=== PATIENT | female | born 1930 | race Caucasian/White ===

== ENCOUNTER → 2016-12-19 | Outpatient (CLI) | payer BC ==
[2016-02-08 10:49] VITALS: BP 126/46
[~2016-12-19] MED LIST: ANAS1TAB PO; APIX5TAB PO; ASCO1500 PO; ASPI-39 PO; BENZ1LOZ48 MM; CALC-98 PO; CARV6.252 PO; CHOL10002 PO; CINN500C2 PO; CIPR250T30 PO; CRAN400T5 PO; CYAN25002 SL; FOLI1TAB35 PO; FURO40TA4 PO; GLUC100018 PO; GLUC1500 PO; LOSA25TA4 PO; Metoprolol Tartrate PO; OMEG1CAP38 PO; OMEP20TA63 PO; OXYC-323 PO; POTA10TA12 PO; PROAIR HFA8.5 GM IH; SIMV20TA3 PO; TRIA1CAP3 PO
--- NOTE | 2016-12-19 14:52 | CARD ---
APPROVED REPORT EXAM: Two-dimensional and M-mode echocardiogram with Doppler and color Doppler. Other Information Quality : GoodHR: 74bpm Rhythm : NSR INDICATION Cardiomyopathy 2D DIMENSIONS RVDd2.9 (2.9-3.5cm)Left Atrium(2D)3.8 (1.6-4.0cm) IVSd1.2 (0.7-1.1cm)Aortic Root(2D)2.2 (2.0-3.7cm) LVDd5.3 (3.9-5.9cm)LVOT Diameter2.2 (1.8-2.4cm) PWd1.2 (0.7-1.1cm)LVDs4.4 (2.5-4.0cm) FS (%) 17.9 %SV50.8 ml LVEF(%)36.9 (>50%) Aortic Valve AoV Peak Seng.129.3cm/sAoV VTI31.2cm AO Peak GR.6.7mmHgLVOT Peak Seng.96.6cm/s AO Mean GR.4mmHgAVA (VMAX)2.74cm2 Mitral Valve MV E Wlofymoj05.8cm/sMV E Peak Gr.5mmHg MV DECEL [id number] A Iqunowzd682.1cm/s MV E Mean Gr.2mmHgE/A Ratio0.8 MV A [id number] Pulmonary Valve PV Peak Jicrmyrx06.0cm/s Tricuspid Valve TR P. Fhetqcxt650mm/sTR Peak Gr.23mmHg Pulmonary Vein S1 Cxrgyisp27.3cm/sD2 Khsblbzd33.6cm/s PVa [id number] LEFT VENTRICLE The left ventricle is normal size. There is mild concentric left ventricular hypertrophy. Left ventri elma systolic function is mildly impaired. The Ejection Fraction is 40-45%. There is mild global hypok inesis of the left ventricle. Transmitral Doppler flow pattern is Grade I-abnormal relaxation pattern . No left ventricle thrombus noted on this study. RIGHT VENTRICLE The right ventricle is normal size. There is normal right ventricular wall thickness. The right ventr icular systolic function is normal. ATRIA The left atrium is moderately dilated. The right atrium size is normal. The interatrial septum is int act with no evidence for an atrial septal defect or patent foramen ovale as noted on 2-D or Doppler i maging. AORTIC VALVE The aortic valve is mildly sclerotic. The aortic valve is trileaflet. Doppler and Color Flow revealed no significant aortic regurgitation. There is no significant aortic valvular stenosis. MITRAL VALVE Mitral annular calcification is mild. The mitral valve leaflets are thickened. There is no evidence o f mitral valve prolapse. There is no mitral valve stenosis. Doppler and Color Flow revealed mild to m oderate mitral regurgitation. TRICUSPID VALVE Doppler and Color Flow revealed trace tricuspid regurgitation. The pulmonary artery systolic pressure is estimated at 26 mmHg. There is no pulmonary hypertension. PULMONIC VALVE The pulmonic valve is not well visualized but appears to open well. Doppler and Color Flow revealed n o pulmonic valvular regurgitation. There is no pulmonic valvular stenosis by spectral Doppler. GREAT VESSELS The aortic root is normal in size. The ascending aorta is normal in size. The pulmonary artery is nor mal. The IVC is normal in size and collapses >50% with inspiration. PERICARDIAL EFFUSION There is no evidence of significant pericardial effusion. Critical Notification Critical Value: No <Conclusion> Left ventricle systolic function is mildly impaired. The Ejection Fraction is 40-45%. Transmitral Doppler flow pattern is Grade I-abnormal relaxation pattern. Mild to moderate mitral regurgitation. Trace tricuspid regurgitation. The pulmonary artery systolic pressure is estimated at 26 mmHg. There is no evidence of significant pericardial effusion.
== END | disposition home or self-care (01) ==
LOC: ECHO 09:52
PROVIDERS: ATTEND Internal Medicine Cardiovascular Disease
DX: I08.1 Rheumatic disorders of both mitral and tricuspid valves (principal)
CPT/HCPCS: 93306

== ENCOUNTER → 2017-12-13 | Outpatient (CLI) | payer BC | END | disposition home or self-care (01) | LOC: ECHO 08:55 | DX: I42.8 Other cardiomyopathies (principal); I10 Essential (primary) hypertension; I34.0 Nonrheumatic mitral (valve) insufficiency; I51.7 Cardiomegaly | CPT/HCPCS: 93306 ==

== ENCOUNTER → 2018-11-14 | Outpatient (CLI) | payer BC ==
[2016-02-08 10:49] VITALS: BP 126/46
[~2018-11-14] MED LIST changes: +ALBU2.5V8 IH; +CARV6.2511 PO; -CARV6.252 PO; -GLUC1500 PO; +GLUC15006 PO; -LOSA25TA4 PO; +LOSA25TA54 PO; -OXYC-323 PO; +OXYC1TAB15 PO; -PROAIR HFA8.5 GM IH
--- NOTE | 2018-11-14 17:13 | RAD ---
Chest, 2 views, 11/14/2018: HISTORY: COPD Comparison is made to a study from 02/05/2016. The heart size is normal. There is calcific plaquing of the aorta. The pulmonary markings are mildly prominent, likely due to fibrosis. No consolidating infiltrate or mass is seen. There is no evidence of pleural fluid. Moderate hypertrophic spurring is present in the spine. Surgical clips are projected over the right axillary region IMPRESSION: 1. Mild fibrotic change in the lungs. 2. No acute cardiopulmonary abnormality is detected. Electronically signed by: Kurt Gonzales MD (11/14/2018 5:10 PM) [facility]
== END | disposition home or self-care (01) ==
LOC: RAD 11:44
PROVIDERS: ATTEND Family Medicine
DX: I70.0 Atherosclerosis of aorta (principal); J84.10 Pulmonary fibrosis, unspecified; J44.9 Chronic obstructive pulmonary disease, unspecified; M46.04 Spinal enthesopathy, thoracic region
CPT/HCPCS: 71046

== ENCOUNTER → 2019-01-06 | Outpatient (CLI) | payer BC ==
[2016-02-08 10:49] VITALS: BP 126/46
--- NOTE | 2019-01-06 09:52 | CARD ---
MR#: [id number] Date of Study: 01/06/2019 Ordering Physician: SOWMYA MASCORRO, Referring Physician: SOWMYA MASCORRO, Tech: Elva Barber MOIRA APPROVED REPORT EXAM: Two-dimensional and M-mode echocardiogram with Doppler and color Doppler. Other Information Quality : AverageHR: 69bpm Rhythm : NSR INDICATION Cardiomyopathy 2D DIMENSIONS RVDd3.0 (2.9-3.5cm)Left Atrium(2D)4.6 (1.6-4.0cm) IVSd1.2 (0.7-1.1cm)Aortic Root(2D)2.6 (2.0-3.7cm) LVDd4.9 (3.9-5.9cm)LVOT Diameter2.0 (1.8-2.4cm) PWd1.0 (0.7-1.1cm)LVDs3.6 (2.5-4.0cm) FS (%) 27.1 %SV59.2 ml LVEF(%)52.7 (>50%) M-Mode DIMENSIONS Left Atrium(MM)4.46 (2.5-4.0cm)Aortic Root2.89 (2.2-3.7cm) Aortic Valve AoV Peak Seng.134.0cm/sAoV VTI33.7cm AO Peak GR.7.2mmHgLVOT Peak Seng.58.9cm/s AO Mean GR.4mmHgAVA (VMAX)1.35cm2 GENARO (VTI)1.50cm2 Mitral Valve MV E Bpoimkkm74.3cm/sMV E Peak Gr.10mmHg MV DECEL [id number] A Sbkpmnwj973.1cm/s MV E Mean Gr.4mmHgE/A Ratio0.7 Pulmonary Valve PV Peak Taeseuno52.0cm/s Tricuspid Valve TR P. Eabmzgpt376iu/sRAP [id number] TR Peak Gr.75bbDxVHLA80cyVi LEFT VENTRICLE The Left Ventricle is borderline dilated. There is normal left ventricular wall thickness. The left v entricular systolic function is slightly decreased. The ejection fraction is 45-50%. There is very mi ld global hypokinesis of the left ventricle. Transmitral Doppler flow pattern is Grade I-abnormal rel axation pattern. RIGHT VENTRICLE The right ventricle is normal size. There is normal right ventricular wall thickness. The right ventr icular systolic function is normal. ATRIA The left atrium is mildly dilated. The right atrium size is normal. The interatrial septum is intact with no evidence for an atrial septal defect or patent foramen ovale as noted on 2-D or Doppler imagi ng. AORTIC VALVE The aortic valve is normal in structure and function. The aortic valve is trileaflet. Doppler and Col or Flow revealed no significant aortic regurgitation. There is no significant aortic valvular stenosi s. There is no aortic valvular vegetation. MITRAL VALVE The mitral valve is thickened but opens well. There is no evidence of mitral valve prolapse. There is no mitral valve stenosis. Doppler and Color-flow revealed mild mitral regurgitation. TRICUSPID VALVE The tricuspid valve is normal in structure and function. Doppler and Color Flow revealed trace tricus pid regurgitation. The PA pressure was estimated at 21 mmHg. There is no tricuspid valve prolapse or vegetation. There is no tricuspid valve stenosis. PULMONIC VALVE The pulmonary valve is normal in structure and function. Doppler and Color Flow revealed no pulmonic valvular regurgitation. There is no pulmonic valvular stenosis. GREAT VESSELS The aortic root is normal in size. The ascending aorta is normal in size. The IVC is normal in size a nd collapses >50% with inspiration. PERICARDIAL EFFUSION There is no evidence of significant pericardial effusion. Critical Notification Critical Value: No <Conclusion> The Left Ventricle is borderline dilated. The left ventricular systolic function is slightly decreased. The ejection fraction is 45-50%. There is very mild global hypokinesis of the left ventricle. There is no significant aortic valvular stenosis. Doppler and Color Flow revealed no significant aortic regurgitation. Doppler and Color-flow revealed mild mitral regurgitation. Doppler and Color Flow revealed trace tricuspid regurgitation. The PA pressure was estimated at 21 mmHg. Signed by : Sowmya Mascorro MD Electronically Approved : 01/06/2019 09:51:52
== END | disposition home or self-care (01) ==
LOC: ECHO 07:48
PROVIDERS: ATTEND Internal Medicine Cardiovascular Disease
DX: I34.0 Nonrheumatic mitral (valve) insufficiency (principal); I42.9 Cardiomyopathy, unspecified
CPT/HCPCS: 93306

== ENCOUNTER → 2019-01-06 | Outpatient (CLI) | payer BC ==
[2016-02-08 10:49] VITALS: BP 126/46
--- NOTE | 2019-01-06 09:18 | RAD ---
PQRS Compliance statement: One or more of the following individualized dose reduction techniques were utilized for this examination: 1. Automated exposure control. 2. Adjustment of the mA and/or kV according to patient size. 3. Use of iterative reconstruction technique. Indication:Cough. TECHNIQUE: CT chest none IV contrast with multiplanar reformats. COMPARISON: Heart is normal in size. No pericardial or pleural effusion. Scattered atherosclerotic plaque in the thoracic aorta. No enlarged axillary adenopathy. Shotty mediastinal lymph nodes, nonspecific. Evaluation of hilar adenopathy limited due to lack of IV contrast. Surgical clips are seen in the right axilla likely prior breast surgery. Central airways are patent. Mild interstitial opacities are seen in the right lower lobe, right upper lobe. Left lung is clear. There is no honeycombing or vestigial thickening. Stable 2 mm nodular opacity in the right lower lobe (series 3 image 26). 2 mm nodular opacity in the medial aspect of the right upper lobe (series 3 image 17). Noncontrast appearance of the visualized sections through the liver, spleen, pancreas, adrenals and upper kidneys within normal limits. No suspicious bony lesion. IMPRESSION: 1. Nonspecific interstitial opacities in the right lung. Findings may be secondary to stigmata of prior infection or acute atypical/viral infection. Follow-up CT chest in 8-12 months recommended. Electronically signed by: Satnam Rod DO (01/06/2019 9:15 AM) [facility]
== END | disposition home or self-care (01) ==
LOC: CT 07:47
PROVIDERS: ATTEND Internal Medicine Pulmonary Disease
DX: I70.0 Atherosclerosis of aorta (principal)
CPT/HCPCS: 71250